=== PATIENT | female | born 1995 | race Caucasian/White ===

== ENCOUNTER 2021-04-06 05:07 | Emergency (ER) | payer BC ==
[2021-04-06] MEDS ORDERED: MAG HYDROX/AL HYDROX/SIMETH 30 ML UNIT-DOSE CUP PO ONE (05:57)
[2021-04-06] MEDS ORDERED: FAMOTIDINE 10 MG TABLET PO ONE (05:57)
[2021-04-06] MEDS ORDERED: ONDANSETRON 4 MG TABLET PO ONE (05:57)
[2021-04-06] MEDS ORDERED: FAMOTIDINE 20 MG TABLET ONE (06:06)
[2021-04-06] MEDS ORDERED: ONDANSETRON *ODT* 4 MG TABLET ONE (06:06)
[2021-04-06] MEDS ORDERED: MAG HYDROX/AL HYDROX/SIMETH 30 ML UNIT-DOSE CUP ONE (06:06)
[2021-04-06 06:08] VITALS: BP 129/76; PULSE 96; TEMP 97.6; BMI 22.6
[2021-04-06] MEDS ORDERED: SODIUM CHLORIDE 0.9% 500 ML INFUS.BAG IV ONE (06:35)
[2021-04-06 06:36] LABS: EPI CELLS 17 /uL (0-25.1); HYALINE CASTS 2 /uL (0-3.1); URINE APPEARANCE CLEAR; URINE BACTERIA 2109 /uL (0-1359); URINE BILIRUBIN NEGATIVE (NEGATIVE); URINE COLOR YELLOW; URINE GLUCOSE (UA) NEGATIVE (NEGATIVE); URINE KETONE NEGATIVE (NEGATIVE); URINE LEUK ESTERASE 1+ (NEGATIVE); URINE NITRITE NEGATIVE (NEGATIVE); URINE PROTEIN NEGATIVE (NEGATIVE); URINE RBC 22 /uL (0-23.9); URINE UROBILINOGEN 0.2 mg/dL (0.2-1.0); URINE WBC 128 /uL (0-25.8)
[2021-04-06 06:54] LABS: HCG,QUALITATIVE URINE Negative
[2021-04-06 07:47] LABS: BASO % 0.6 % (0-2.0); EOS % 0.5 % (0-4.5); HEMATOCRIT 37.2 % (32.4-45.2); HEMOGLOBIN 12.6 GM/dL (10.7-15.3); LYMPH % 20.7 % (8-40); MCH 27.8 pg (25.7-33.7); MEAN CELL VOLUME 81.7 fl (80-96); MEAN PLT VOLUME 9.5 fl (7.5-11.1); NEUT % 73.2 % (42.8-82.8); PLATELET COUNT 217 10^3/uL (134-434); RBC 4.55 M/mm3 (3.60-5.2); RDW 13.3 % (11.6-15.6); WHITE BLOOD COUNT 8.9 K/mm3 (4.0-10.0)
[2021-04-06 08:02] LABS: BLOOD UREA NITROGEN 7.6 mg/dL (7-18); CALCIUM 9.8 mg/dL (8.5-10.1)
[2021-04-06 08:05] LABS: CREATININE 0.8 mg/dL (0.55-1.3)
[2021-04-06 08:07] LABS: TOT PROT 8.3 g/dl (6.4-8.2)
[2021-04-06 08:09] LABS: BILIRUBIN,TOTAL 0.4 mg/dL (0.2-1)
== END 2021-04-06 09:20 | disposition home or self-care (01) ==
LOC: JER 05:07
DX: R10.13 Epigastric pain (principal)
CPT/HCPCS: 36415; 80053; 81003; 83690; 84703; 85025; 87086; 93005; 93010; 99284-25